=== PATIENT | female | born 1960 | race Caucasian/White ===

== ENCOUNTER 2016-05-20 10:36 | Emergency (ER) | payer OTHER ==
[~2016-05-20] VITALS: Ht 144.8 cm; Wt 72.5 kg
[~2016-05-20 10:36] MED LIST: ATEN50TA PO
[2016-05-20] MEDS ORDERED: GLYB5 PO (10:41)
[2016-05-20 10:46] LABS: GLUCOSE,POINT OF CARE 169 MG/DL (70-110)
[2016-05-20] MEDS ORDERED: MIDAZOLAM HCL 2 MG/2 ML VIAL IVP ONE (11:00)
[2016-05-20] MEDS ORDERED: FentaNYL CITRATE-PF 100 MCG/2 ML VIAL IVP ONE (11:00)
[2016-05-20] MEDS ORDERED: NALOXONE HCL 1 MG/ML 2 ML SYG ONE (11:01)
[2016-05-20] MEDS ORDERED: FLUMAZENIL 0.1 MG/ML 5 ML VIAL IVP ONE (11:01)
[2016-05-20] MEDS ORDERED: ONDANSETRON HCL 4 MG/2 ML VIAL IVP ONE (12:00)
[2016-05-20 15:12] VITALS: BP 142/74
== END 2016-05-20 15:13 | disposition short-term general hospital (02) ==
LOC: EMS 10:37
DX: S03.00XA Dislocation of jaw, unspecified side, initial encounter (principal); I10 Essential (primary) hypertension; E11.9 Type 2 diabetes mellitus without complications; Z79.899 Other long term (current) drug therapy; X58.XXXA Exposure to other specified factors, initial encounter; Y93.89 Activity, other specified; Y92.9 Unspecified place or not applicable; Y99.9 Unspecified external cause status
CPT/HCPCS: 21480; 70486; 82962; 96374; 96375; 99152; 99285; J2250; J2405; J3010; J2310; J3490

== ENCOUNTER 2016-07-24 09:44 | Emergency (ER) | payer OTHER ==
[~2016-07-24] VITALS: Ht 147.3 cm; Wt 50.0 kg
[~2016-07-24 09:44] MED LIST changes: +GLYB5 PO
[2016-07-24 10:02] LABS: GLUCOSE,POINT OF CARE 196 MG/DL (70-110)
[2016-07-24 10:07] VITALS: BP 127/0
== END 2016-07-24 10:58 | disposition home or self-care (01) ==
LOC: EMS 09:46
DX: S41.131A Puncture wound without foreign body of right upper arm, initial encounter (principal); I10 Essential (primary) hypertension; E11.9 Type 2 diabetes mellitus without complications; W54.0XXA Bitten by dog, initial encounter; Y93.89 Activity, other specified; Y92.89 Other specified places as the place of occurrence of the external cause; Y99.8 Other external cause status
CPT/HCPCS: 82962; 99283